=== PATIENT | female | born 1980 | race African-American/Black ===

== ENCOUNTER 2019-08-26 14:13 | Outpatient (CLI) | payer OTHER, SELFPAY ==
--- NOTE | ~2019-08-26 | MR_ITS ---
EXAMINATION: MR orbits face neck wo con EXAM DATE: 08/26/2019 15:15 INDICATION: Left eye Codie's Granulomatous polyangiitis. TECHNIQUE: Magnetic resonance imaging (MRI) of the brain/brain stem obtained without contrast. Juan Jose aguirre T1, axial diffusion, gradient echo (T2*), T1, T2, FLAIR sequences obtained. Smaller qkzhy-fv-kprv T1 coronal and axial, T2 fat saturation coronal and axial sequences of the orbits obtained. There is no prior study for comparison. FINDINGS: There is left orbital mass causing mass effect and/or involving the left globe, along the l eft posterolateral superior aspect. Mass is about 8 mm in maximal thickness, thins out along the cont our of the lobe. It could be could be partially or completely encasing the traversing lateral rectus muscle. This does not have restricted diffusion, which decreases likelihood of lymphoma or other tarun gnancy. 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 Ocular muscles, optic nerves a re otherwise unremarkable No evidence of involvement within the orbits elsewhere. There is right mastoid effusion. Small to mod erate-sized right maxillary sinus mucous retention cysts. There are no areas of restricted diffusion to suggest acute infarction. There is no acute hemorrhage seen on the T2*, a hemosiderin sensitive s equence. No intraparenchymal brain mass. The ventricles are normal in size. There are no extra-axia l collections. Flow voids are seen in the cerebral arteries on the T2-weighted sequences consistent with their expected patency. IMPRESSION: Left orbital mass causing mass effect or involving the left globe posterior superolateral wall, could also be partially or completely encasing traversing portion of the left lateral rectus m uscle. Reviewed, dictated and finalized at location A. WEAVER IMPRESSION: Left orbital mass causing mass effect or involving the left globe p osterior superolateral wall, could also be partially or completely encasing tra versing portion of the left lateral rectus muscle.
== END 2019-08-26 14:14 | disposition home or self-care (01) ==
PROVIDERS: PCP Nurse Practitioner Family; Visit Provider Internal Medicine Gastroenterology
DX: H50.10 Unspecified exotropia (principal); M31.30 Wegener's granulomatosis without renal involvement
CPT/HCPCS: 70540

== ENCOUNTER 2019-11-26 13:13 | Emergency (ER) | payer OTHER, SELFPAY ==
[2019-11-26 13:15] VITALS: BP 148/92; PULSE 98; RESP 18; TEMP 36.3; O2SAT 100
[2019-11-26 14:12] LABS: Basophils Percent Auto 0.2 % (0.2-1.2); Eosinophils Percent Auto 0.5 % (0-4.4); Hematocrit 35.3 % (37.0-47.0); Hemoglobin 11.3 g/dL (12.0-15.0); Immature Granulocyte Absolute 0.02 K/mm3 (0.00-0.031); Immature Granulocyte Percent A 0.3 % (0-0.5); Lymphocytes Absolute Auto 0.96 K/mm3 (0.9-3.2); Lymphocytes Percent Auto 16.6 % (18.3-44.2); Mean Corpuscular Hemoglobin 29.4 pg (26-34); Mean Corpuscular Volume 91.9 fl (80-100); Mean Platelet Volume 8.8 fl (7.4-10.4); Monocytes Absolute Auto 0.3 K/mm3 (0.1-0.6); Monocytes Percent Auto 5.9 % (2.6-8.5); Neutrophils Absolute Auto 4.4 K/mm3 (1.3-6.7); Neutrophils Percent Auto 76.5 % (45.5-73.1); Platelet Count Result 377 k/mm3 (150-375); Red Blood Count 3.84 M/mm3 (4.2-5.4); Red Cell Distribution Width 16.2 % (11.5-14.5); White Blood Count 5.8 K/mm3 (4.5-10.0)
[2019-11-26] MEDS: METOCLOPRAMIDE HCL INJ 10 MG/2 ML VIAL IV PUSH (14:13)
[2019-11-26] MEDS: SODIUM CHLORIDE 0.9% IV 1,000 ML 999 ML IV CONT (14:16)
[2019-11-26] MEDS: KETOROLAC 15 MG/ML VIAL (*BKC) IV PUSH (14:17)
[2019-11-26 14:26] LABS: Blood Urea Nitrogen 12 mg/dL (7-17); CRP 0.7 mg/dL (<1.0); Calcium 9.3 mg/dL (8.4-10.2); Carbon Dioxide 26 mmol/L (22-30); Chloride 103 mmol/L (98-107); Estimated CRCL calculation 102 ml/min; Estimated Glomerular Filt Rate > 60; Glucose 99 mg/dL (65-105); Potassium 3.4 mmol/L (3.4-5.0); Sodium 138 mmol/L (137-145)
[2019-11-26 14:38] LABS: Erythrocyte Sedimentation Rate 80 mm/hr (0-20)
[2019-11-26 15:25] VITALS: PULSE 80; RESP 20; O2SAT 98
--- NOTE | 2019-11-26 16:15 | ED.HA ---
HPI - Headache General Chief Complaint: Headache Stated Complaint: Headache, Rash Time Seen by Provider: 11/26/19 13:36 Source: patient Mode of arrival: ambulatory Limitations: no limitations History of Present Illness HPI Narrative: This is a 39-year-old female that presents the emergency department for headache x2 days. Reports intermittent headaches that she has been taking ibuprofen with relief. Reports frontal headache. Reports she does have history of headaches. Also reports earlier this week she was having trouble with hives. Reports she took Benadryl for this with relief. Reports a possible new body soap which caused an allergic reaction. Also reports that she thinks her uveitis is flaring. She has been having some pain and redness to the left eye. Reports she has a ophthalmic steroid that she uses when she has a flare. She does see an eye doctor for this. Denies fever, stiff neck, new vision changes, vomiting, numbness or weakness. Related Data Allergies Allergy/AdvReac Type Severity Reaction Status Date / Time ciprofloxacin Allergy Mild Rash Verified 12/22/18 18:26 codeine Allergy Mild Rash Verified 12/22/18 18:26 amoxicillin Allergy Unknown Rash Verified 12/22/18 18:26 clavulanic acid Allergy Unknown Rash Verified 12/22/18 18:26 nitrofurantoin Allergy Unknown Rash Verified 12/22/18 18:26 sulfamethoxazole Allergy Unknown Rash Verified 12/22/18 18:26 trimethoprim Allergy Unknown Rash Verified 12/22/18 18:26 Contrast Media Allergy Intermediate Other Uncoded 12/22/18 18:26 NITROFURANTOIN MACROCRYSTAL Allergy Unknown Rash Uncoded 12/22/18 18:26 Review of Systems Review of Systems: Narrative: CONSTITUTIONAL: Denies fever EYES: Reports redness. Denies visual changes GASTROINTESTINAL: Denies vomiting SKIN: Denies rash currently NEUROLOGIC: Reports headache. Denies numbness, or weakness. All systems reviewed & are unremarkable except as noted in HPI and below PMFSH Past Medical History Medical History (Updated 11/26/19 @ 16:27 by Grecia Mejia PA-C) History of uveitis History of Codie's granulomatosis Social History Social History (Updated 11/26/19 @ 16:19 by Grecia Mejia PA-C) Smoking status: Never smoker Substance use: never Exam Narrative: Exam Narrative: GENERAL: Well-appearing, well-nourished, and in no acute distress. HEAD: Normocephalic, atraumatic. No temporal tenderness EYES: EOMI. Left conjuntival injection. Left sided ptosis ENT: Nares clear, no rhinorrhea or epistaxis. Mucous membranes moist. Oropharynx without tonsillar hypertrophy exudate or other lesions. Bilateral TMs pearly mueller non-bulging NECK: Supple. No adenopathy or masses. Normal ROM CHEST: Clear to auscultation. No respiratory distress. No wheezes rales or rhonchi HEART: Regular rate and rhythm. No murmur heard. Normal peripheral pulses. EXTREMITIES: Normal range of motion. No edema. Strength equal in bilateral upper extremities SKIN: Warm, dry, no rash. NEURO: No focal deficits. Alert and oriented x3. Cranial nerves II through XII grossly intact PSYCH: Normal mood and affect Course Vital Signs Vital signs: Vital Signs Temperature 97.4 F L 11/26/19 13:15 Pulse Rate 98 11/26/19 13:15 Respiratory Rate 18 11/26/19 13:15 Blood Pressure 148/92 H 11/26/19 13:15 Pulse Oximetry 100 11/26/19 13:15 Temperature 97.4 F L 11/26/19 13:15 Pulse Rate 98 11/26/19 13:15 Respiratory Rate 18 11/26/19 13:15 Blood Pressure 148/92 H 11/26/19 13:15 Pulse Oximetry 100 11/26/19 13:15 MDM - Headache MDM Narrative Medical decision making narrative: Patient presents the emergency department for headache that has been intermittent for 2 days. Patient is afebrile and nontoxic-appearing. She is neurologically intact. CBC is without leukocytosis. ESR is elevated, CRP is normal. Patient reports relief of headache with migraine cocktail. Patient does have history of Codie's granulomatosis and history of uvei
[2019-11-26 17:17] VITALS: BP 134/82; PULSE 82; RESP 20; O2SAT 98
== END 2019-11-26 17:20 | disposition home or self-care (01) ==
PROVIDERS: Physician Assistant; Emergency Provider Emergency Medicine; PCP Nurse Practitioner Family
DX: H20.9 Unspecified iridocyclitis (principal); G44.209 Tension-type headache, unspecified, not intractable
CPT/HCPCS: 36415; 80048; 85025; 85652; 86140; 96361; 96374; 96375; 99284; J0131; J1100; J1200; J1885; J2765; J7030

== ENCOUNTER 2019-12-30 16:16 | Emergency (ER) | payer OTHER, SELFPAY ==
--- NOTE | ~2019-12-30 | CT_ITS ---
EXAMINATION: CT brain wo con INDICATION: Headache and nausea COMPARISON: 12/23/2019 TECHNIQUE: Standard unenhanced head CT. The dose-length product (DLP) was 605.33 mGy-cm. The mA was a djusted according to patient size. Iterative reconstruction technique was employed. FINDINGS: There is no intracranial hemorrhage, acute infarction, or abnormal mass lesion. The ventric les are normal. There is no abnormal mass effect or midline shift. The mueller-white matter differentiat ion is normal. The basal cisterns are patent. The orbits are normal. There is near complete opacifica tion of the right mastoid air cells. IMPRESSION: 1. No acute intracranial abnormality. 2. Right mastoid effusion. Reviewed, dictated and finalized at location A.
[2019-12-30 16:19] VITALS: BP 172/105; PULSE 111; RESP 18; TEMP 36.8; O2SAT 100
[2019-12-30 16:54] LABS: Basophils Percent Auto 0.1 % (0.2-1.2); Eosinophils Percent Auto 0.1 % (0-4.4); Hematocrit 32.9 % (37.0-47.0); Hemoglobin 10.3 g/dL (12.0-15.0); Immature Granulocyte Absolute 0.02 K/mm3 (0.00-0.031); Immature Granulocyte Percent A 0.2 % (0-0.5); Lymphocytes Absolute Auto 1.18 K/mm3 (0.9-3.2); Lymphocytes Percent Auto 13.7 % (18.3-44.2); Mean Corpuscular HGB Conc 31.3 g/dl (32-36); Mean Corpuscular Hemoglobin 28.8 pg (26-34); Mean Corpuscular Volume 91.9 fl (80-100); Mean Platelet Volume 8.3 fl (7.4-10.4); Monocytes Absolute Auto 0.6 K/mm3 (0.1-0.6); Monocytes Percent Auto 6.4 % (2.6-8.5); Neutrophils Absolute Auto 6.8 K/mm3 (1.3-6.7); Neutrophils Percent Auto 79.5 % (45.5-73.1); Platelet Count Result 369 k/mm3 (150-375); Red Blood Count 3.58 M/mm3 (4.2-5.4); Red Cell Distribution Width 16.7 % (11.5-14.5); White Blood Count 8.6 K/mm3 (4.5-10.0)
[2019-12-30 17:05] LABS: Blood Urea Nitrogen 12 mg/dL (7-17); Calcium 9.4 mg/dL (8.4-10.2); Carbon Dioxide 26 mmol/L (22-30); Chloride 102 mmol/L (98-107); Estimated CRCL calculation 89 ml/min; Estimated Glomerular Filt Rate > 60; Glucose 110 mg/dL (65-105); Potassium 3.5 mmol/L (3.4-5.0); Sodium 136 mmol/L (137-145)
--- NOTE | 2019-12-30 18:30 | PC.NURSE ---
Per EDP via verbal order readback give 4mg zofran ODT and 60mg IM toradol due to patient increasing headache and nausea.
[2019-12-30] MEDS: KETOROLAC (*BKC) 60 MG/2 ML VIAL (18:31)
[2019-12-30] MEDS: ONDANSETRON HCL ODT 4 MG TABLET (18:31)
[2019-12-30 18:38] LABS: Add Urine Microscopic? YES; Appearance Urine Clear (Clear); Bacteria Urine Trace /hpf; Bilirubin Urine Negative (Negative); Blood Urine Negative (Negative); Color Urine Yellow (Yellow); Glucose Urine UA Negative (Negative); Ketones Urine 1+ mg/dL (Negative); Leukocyte Esterase Ur Trace LEU/UL (Negative); Mucus Urine Few /lpf; Nitrate Urine Negative (Negative); Protein Urine 1+ mg/dL (Negative); RBC Urine 0-2 /hpf (0-2); Specific Grav Ur 1.025 (1.001-1.035); Squamous Epithelial Cell Urine Many /hpf (Few); Urobilinogen Urine Negative mg/dL (<2.0)
--- NOTE | 2019-12-30 18:42 | ECG_ITS ---
Measurements Intervals [place] Rate: 104 P: 27 AR: 128 QRS: 5 QRSD: 88 T: 19 QT: 353 QTc: 465 Interpretive Statements SINUS TACHYCARDIA BORDERLINE T WAVE ABNORMALITY- INFERIOR LEADS ABNORMAL ECG Electronically Signed On 12-30-2019 20:15:52 CDT by Kunal Downey D.O.
[2019-12-30 19:08] LABS: Troponin I < 0.012 ng/mL (0.000-0.034)
[2019-12-30 19:18] VITALS: BP 159/74; PULSE 98; RESP 20; O2SAT 99
--- NOTE | 2019-12-30 19:37 | ED.GENADULT ---
HPI - General Adult General Chief complaint: Headache Stated complaint: headache Time Seen by Provider: 12/30/19 16:20 Source: patient Mode of arrival: ambulatory Limitations: no limitations History of Present Illness HPI narrative: 39-year-old with a history of Samuels's granulomatosis, uveitis of the left eye here with complaints of headache, not feeling well, chest discomfort associated with some nausea for past 1 day. She also states that she woke up not feeling well. Denies any cough, shortness of breath or fever. Onset (ago): day(s) (1) Location: head and chest Radiation: non-radiation Severity: moderate Severity scale (1-10): 4 Quality: aching Relieving factors: none Exacerbating factors: none Associated symptoms: headaches Related Data Allergies Allergy/AdvReac Type Severity Reaction Status Date / Time ciprofloxacin Allergy Mild Rash Verified 12/30/19 16:22 codeine Allergy Mild Rash Verified 12/30/19 16:22 amoxicillin Allergy Unknown Rash Verified 12/30/19 16:22 clavulanic acid Allergy Unknown Rash Verified 12/30/19 16:22 nitrofurantoin Allergy Unknown Rash Verified 12/30/19 16:22 sulfamethoxazole Allergy Unknown Rash Verified 12/30/19 16:22 trimethoprim Allergy Unknown Rash Verified 12/30/19 16:22 Contrast Media Allergy Intermediate Other Uncoded 12/22/18 18:26 NITROFURANTOIN MACROCRYSTAL Allergy Unknown Rash Uncoded 12/22/18 18:26 Review of Systems Review of Systems: All systems reviewed & are unremarkable except as noted in HPI and below Constitutional: Constitutional: Reports as per HPI Eyes: Eyes: Reports no additional eye complaints ENT: Reports system reviewed and no additional complaints, except as documented Cardiovascular: Cardiovascular: Reports chest pain Respiratory: Respiratory: Reports no additional respiratory complaints Gastrointestinal: Gastrointestinal: Reports nausea and Reports vomiting Musculoskeletal: Musculoskeletal: Reports no additional musculoskeletal complaints Neurologic: Reports system reviewed and no additional complaints, except as documented Endocrine: Endocrine: Reports no additional endocrine complaints Hematologic/Lymphatic: Hematologic/Lymphatic: Reports no additional hematologic/lymphatic complaints FOR[facility]LY [facility], [facility] Past Medical History Medical History History of uveitis History of Codie's granulomatosis Social History Social History (Updated 11/26/19 @ 16:19 by Grecia Mejia PA-C) Smoking status: Never smoker Substance use: never Exam Const: General: no acute distress and alert Orientation/consciousness: patient oriented x3 HENMT: Head: normal to inspection Eyes: Pupils: Equal, round and reactive pupils present Other: Left eye deviated Neck: Neck: normal visual inspection Chest: Chest palpation & inspection: normal inspection of the chest Resp: Effort & Inspection: normal respiratory effort Cardio: Rate: regular rate Rhythm: regular rhythm GI: GI Palp: Yes Soft to palpation : General: Yes no CVA tenderness Back/Spine/Pelvis: Back: no CVA tenderness Skin: General skin exam: normal color Neuro: General: patient oriented x3 and moves all extremities Extrem: General: normal to inspection Course Course Emergency Course: Inform patient about her lab work, EKG. CT findings. She is still has minor nausea however she refused Compazine at this time. And her cause of headache and chest pain could be a migraine or could be atypical headache. Advised her to continue home medication, follow-up with her primary doctor Vital Signs Vital signs: Vital Signs Temperature 36.8 C 12/30/19 16:19 Pulse Rate 111 H 12/30/19 16:19 Respiratory Rate 18 12/30/19 16:19 Blood Pressure 172/105 H 12/30/19 16:19 Pulse Oximetry 100 12/30/19 16:19 Temperature 36.8 C 12/30/19 16:19 Pulse Rate 98 12/30/19 19:18 Respiratory Rate 20 12/30/19 19:18 Blood Pressure 159/74 H
[2019-12-30 19:56] VITALS: BP 126/83; PULSE 94; RESP 18; TEMP 36.8; O2SAT 100
== END 2019-12-30 19:56 | disposition home or self-care (01) ==
PROVIDERS: Emergency Provider Family Medicine; PCP Nurse Practitioner Family
DX: R51 Headache (principal); M31.30 Wegener's granulomatosis without renal involvement; R00.0 Tachycardia, unspecified; R94.31 Abnormal electrocardiogram [ECG] [EKG]
CPT/HCPCS: 36415; 70450; 80048; 81001; 84484; 85025; 93005; 96374; 96375; 99284; A9270; J0780; J1885

== ENCOUNTER 2020-01-10 21:32 | Emergency (ER) | payer OTHER, SELFPAY ==
[2020-01-10 21:33] VITALS: BP 150/95; PULSE 98; RESP 25; TEMP 36.4; O2SAT 100
[2020-01-10] MEDS: KETOROLAC 30 MG/ML VIAL (*BKC) IV PUSH (22:56)
[2020-01-10] MEDS: SODIUM CHLORIDE 0.9% IV 1,000 ML 999 ML IV CONT (22:56)
[2020-01-10] MEDS: METOCLOPRAMIDE HCL INJ 10 MG/2 ML VIAL IV PUSH (22:56)
--- NOTE | 2020-01-10 22:57 | ED.HA ---
HPI - Headache General Chief Complaint: Headache Stated Complaint: HEADACHE History of Present Illness HPI Narrative: Patient is a 39-year-old female who presents ER with headache. It is diffuse. Has history of migraines. Similar to previous headaches. It all began earlier today after her left eye began to hurt her. 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 No new fevers/chills/sweats/nausea/vomiting. She took Tylenol 1 time today without relief of symptoms. Increased sensitivity to light. No other aggravating factors. Related Data Allergies Allergy/AdvReac Type Severity Reaction Status Date / Time ciprofloxacin Allergy Mild Rash Verified 01/10/20 21:52 codeine Allergy Mild Rash Verified 01/10/20 21:52 amoxicillin Allergy Unknown Rash Verified 01/10/20 21:52 clavulanic acid Allergy Unknown Rash Verified 01/10/20 21:52 nitrofurantoin Allergy Unknown Rash Verified 01/10/20 21:52 sulfamethoxazole Allergy Unknown Rash Verified 01/10/20 21:52 trimethoprim Allergy Unknown Rash Verified 01/10/20 21:52 Contrast Media Allergy Intermediate Other Uncoded 01/10/20 21:52 NITROFURANTOIN MACROCRYSTAL Allergy Unknown Rash Uncoded 01/10/20 21:52 Review of Systems Review of Systems: All systems reviewed & are unremarkable except as noted in HPI and below Constitutional: Constitutional: Denies chills, Denies fever(s) and Denies weakness Eyes: Eyes: Denies change in vision and Reports photophobia ENT: Denies nasal congestion and Denies sore throat Gastrointestinal: Gastrointestinal: Denies abdominal pain, Denies nausea and Denies vomiting Neurologic: Reports headache(s), Denies focal weakness and Denies numbness PMFSH Past Medical History Medical History (Updated 01/11/20 @ 00:53 by Frank Clarke MD) History of uveitis History of Codie's granulomatosis Surgical History Surgical History (Updated 01/10/20 @ 23:00 by Frank Clarke MD) History of myringotomy Social History Social History (Updated 11/26/19 @ 16:19 by Grecia Mejia PA-C) Smoking status: Never smoker Substance use: never Gender identity (if verbalized by the patient): Female Exam Narrative: Exam Narrative: GENERAL: Well-appearing, well-nourished, and in no acute distress. HEAD: Normocephalic, atraumatic. EYES: Right eye normal, left eye deviated laterally with drooping of the eyelid that is chronic for her. CHEST: Clear to auscultation. No respiratory distress. HEART: Regular rate and rhythm. Normal peripheral pulses. EXTREMITIES: Normal range of motion. No edema. NEURO: Alert and oriented x3. PSYCH: Normal mood and affect. Course Course Emergency Course: Headache improved with Reglan/Benadryl/Toradol. Discharge home. Vital Signs Vital signs: Vital Signs Temperature 97.6 F 01/10/20 21:33 Pulse Rate 98 01/10/20 21:33 Respiratory Rate 25 H 01/10/20 21:33 Blood Pressure 150/95 H 01/10/20 21:33 Pulse Oximetry 100 01/10/20 21:33 Temperature 97.6 F 01/10/20 21:33 Pulse Rate 80 01/10/20 23:47 Respiratory Rate 15 01/10/20 23:47 Blood Pressure 114/75 01/10/20 23:47 Pulse Oximetry 100 01/10/20 23:47 Discharge Plan Discharge Clinical Impression: Migraine Patient Disposition: Home, Self-Care Condition: Stable Instructions: Migraine Headache (ED) Additional Instructions: Return the ER if you lose consciousness, you have fever over 100.4 ?F, you have chest pain or shortness of breath, you have additional concerns. Prescriptions: No Action zgfprvzwzk-hbvqprw-yggovxdc [Fiorinal] 50-325-40 mg capsule 1 cap PO Q4-6H PRN (Reason: pain) Qty: 14 RF: 0 ondansetron HCl [Zofran] 4 mg tablet 4 mg PO Q8H 5 Days Qty: 15 RF: 0 Follow-up/Referrals: BALBIR,MIKE WONG [Primary Care Provider] - 1 Week Stand Alone Forms: Work/School Release IP
--- NOTE | 2020-01-10 23:00 | PC.NURSE ---
Assumed care of pt at this time. Report from LAURA Johnson
[2020-01-10 23:47] VITALS: BP 114/75; PULSE 80; RESP 15; O2SAT 100
[2020-01-11 00:50] VITALS: BP 117/72; PULSE 90; RESP 15; O2SAT 100
== END 2020-01-11 00:50 | disposition home or self-care (01) ==
PROVIDERS: Emergency Provider Emergency Medicine; PCP Nurse Practitioner Family
DX: G43.909 Migraine, unspecified, not intractable, without status migrainosus (principal); M31.30 Wegener's granulomatosis without renal involvement
CPT/HCPCS: 96361; 96374; 96375; 99284; J1200; J1885; J2765; J7030

== ENCOUNTER 2020-01-30 17:21 | Emergency (ER) | payer OTHER, SELFPAY ==
[2020-01-30] VITALS (8 sets, daily range): BP systolic 107–148; BP diastolic 66–93; PULSE 76–117; RESP 12–22; TEMP 37.3; O2SAT 100
--- NOTE | ~2020-01-30 | XR_ITS ---
EXAMINATION: XR chest 2V 01/30/2020 19:36 INDICATION: Hypertension. Dyspnea. PROCEDURE: 2 view chest COMPARISON: Comparison to multiple prior studies sequentially, with oldest reviewed study dated 07/25 99. FINDINGS: The lungs are clear. The cardiomediastinal silhouette is within normal limits. There are no pleural effusions. There is no pneumothorax suspected. IMPRESSION: 1: NO ACUTE CARDIOPULMONARY DISEASE. Reviewed, dictated and finalized at location A.
--- NOTE | 2020-01-30 17:57 | ECG_ITS ---
Measurements Intervals [place] Rate: 100 P: 27 MT: 144 QRS: -28 QRSD: 83 T: -30 QT: 324 QTc: 419 Interpretive Statements SINUS TACHYCARDIA DELAYED PRECORDIAL R/S TRANSITION HIGH LATERAL INFARCT, AGE INDETERMINATE BORDERLINE T WAVE ABNORMALITY- ANT/INF LEADS BASELINE ARTIFACT- I, II, III, AVR, AVL, AVF ABNORMAL ECG Electronically Signed On 01-30-2020 20:00:43 CDT by Kunal Downey D.O.
[2020-01-30 18:21] LABS: Basophils Percent Auto 0.3 % (0.2-1.2); Eosinophils Percent Auto 0.3 % (0-4.4); Hematocrit 33.8 % (37.0-47.0); Hemoglobin 10.9 g/dL (12.0-15.0); Immature Granulocyte Absolute 0.02 K/mm3 (0.00-0.031); Immature Granulocyte Percent A 0.3 % (0-0.5); Lymphocytes Percent Auto 14.3 % (18.3-44.2); Mean Corpuscular HGB Conc 32.2 g/dl (32-36); Mean Corpuscular Hemoglobin 29.9 pg (26-34); Mean Corpuscular Volume 92.6 fl (80-100); Mean Platelet Volume 9.2 fl (7.4-10.4); Monocytes Absolute Auto 0.6 K/mm3 (0.1-0.6); Monocytes Percent Auto 8.1 % (2.6-8.5); Neutrophils Absolute Auto 5.4 K/mm3 (1.3-6.7); Neutrophils Percent Auto 76.7 % (45.5-73.1); Platelet Count Result 367 k/mm3 (150-375); Red Blood Count 3.65 M/mm3 (4.2-5.4); Red Cell Distribution Width 16.7 % (11.5-14.5)
[2020-01-30 18:31] LABS: INR 1.1
[2020-01-30 18:32] LABS: Partial Thromboplastin Time 30.6 SECONDS (22.3-36.8)
[2020-01-30 18:33] LABS: Anion Gap 12.6 mmol/L (7-16); Blood Urea Nitrogen 14 mg/dL (7-17); Calcium 9.6 mg/dL (8.4-10.2); Carbon Dioxide 25 mmol/L (22-30); Chloride 103 mmol/L (98-107); Estimated CRCL calculation 117 ml/min; Estimated Glomerular Filt Rate > 60; Glucose 105 mg/dL (65-105); Potassium 3.6 mmol/L (3.4-5.0); Sodium 137 mmol/L (137-145)
[2020-01-30 18:45] LABS: Troponin I < 0.012 ng/mL (0.000-0.034)
[2020-01-30] MEDS: ASPIRIN 81 MG CHEWABLE TABLET 324 MG PO (19:17)
--- NOTE | 2020-01-30 19:48 | ED.GENADULT ---
HPI - General Adult General Chief complaint: Dizziness Stated complaint: dizzy, htn Time Seen by Provider: 01/30/20 19:23 Source: patient Mode of arrival: ambulatory Limitations: no limitations History of Present Illness HPI narrative: This patient is a 39 year old female who presents for evaluation of elevated blood pressure and elevated heart rate. PAtient states she was washing dishes around 4 pm when she started to feel jittery. She checked her blood pressure at that time and it was elevated 160/100 and her heart rate was 130. She became nervous and she came to ER. She also had some lightheadedness when she stood up. Her symptoms have resolved. She has been told in the past her BP is elevated when she goes to doctors office but she does not take anti hypertensive medication. Onset (ago): hour(s) (4) Related Data Allergies Allergy/AdvReac Type Severity Reaction Status Date / Time ciprofloxacin Allergy Mild Rash Verified 01/30/20 22:18 codeine Allergy Mild Rash Verified 01/30/20 22:18 amoxicillin Allergy Unknown Rash Verified 01/30/20 22:18 clavulanic acid Allergy Unknown Rash Verified 01/30/20 22:18 nitrofurantoin Allergy Unknown Rash Verified 01/30/20 22:18 sulfamethoxazole Allergy Unknown Rash Verified 01/30/20 22:18 trimethoprim Allergy Unknown Rash Verified 01/30/20 22:18 Contrast Media Allergy Intermediate Other Uncoded 01/30/20 22:18 NITROFURANTOIN MACROCRYSTAL Allergy Unknown Rash Uncoded 01/30/20 22:18 Review of Systems Review of Systems: All systems reviewed & are unremarkable except as noted in HPI and below Constitutional: Constitutional: Denies chills and Denies fever(s) ENT: Reports dizziness Cardiovascular: Cardiovascular: Denies chest pain and Reports rapid heart rate Respiratory: Respiratory: Denies chest congestion, Denies cough, Reports dyspnea and Denies wheezing Gastrointestinal: Gastrointestinal: Denies abdominal pain, Denies diarrhea, Denies nausea and Denies vomiting Psychiatric: Psychiatric: Reports anxiety PMFSH Past Medical History Medical History History of uveitis History of Codie's granulomatosis Surgical History Surgical History (Updated 01/10/20 @ 23:00 by Frank Clarke MD) History of myringotomy Social History Social History (Updated 11/26/19 @ 16:19 by Grecia Mejia PA-C) Smoking status: Never smoker Substance use: never Gender identity (if verbalized by the patient): Female Exam Narrative: Exam Narrative: GENERAL: Well-appearing, well-nourished, and in no acute distress. HEAD: Normocephalic, atraumatic EARS: TM's clear bilaterally without erythema or dullness NOSE: Nares clear, no rhinorrhea or epistaxis THROAT:Mucous membranes moist, Oropharynx normal without erythema, exudate, peritonsillar swelling or fluctuance NECK: Supple, without lymphadenopathy or mass RESPIRATORY: No respiratory distress, Airway patent, Respirations non-labored, Clear to auscultation without rales, rhonchi or wheeze HEART: Regular rate and rhythm. No murmur heard. Normal peripheral pulses. ABDOMEN: Soft, nontender, nondistended, normal active bowel sounds. No masses. No rebound or guarding, No organomegaly. EXTREMITIES: No edema, normal strength with full range of motion. SKIN: Warm, dry, normal color without rash NEURO: Alert and oriented x3. CN 2-12 grossly intact. No focal deficits. PSYCH: Normal mood and affect. Course Reevaluation(s) Reevaluation #1: Patient reported to nursing staff that she wanted to be tested for UTI since she is having frequent urination. She denies dysuria. I Discussed UA does not definitely show UTI. She wants to hold off on antibiotics until PCP follows up on urine culture Date: 01/30/20 Time: 22:07 Vital Signs Vital signs: Vital Signs Temperature 99.1 F 01/30/20 17:54 Pulse Rate 103 H 01/30/20 17:54 Respiratory Rate 16 01/30/20 17:54 Blood Pressur
--- NOTE | 2020-01-30 21:30 | PC.NURSE ---
Pt states she forgot to let the doctor know she has been having frequent urination for about [address] Perez made aware.
[2020-01-30 21:45] LABS: Troponin I < 0.012 ng/mL (0.000-0.034)
[2020-01-30 21:53] LABS: Add Urine Microscopic? YES; Appearance Urine Clear (Clear); Bacteria Urine Trace /hpf; Bilirubin Urine Negative (Negative); Blood Urine Negative (Negative); Calcium Oxalate Crystals Urine Present /hpf; Color Urine Yellow (Yellow); Glucose Urine UA Negative (Negative); Ketones Urine Negative (Negative); Leukocyte Esterase Ur 2+ LEU/UL (Negative); Mucus Urine Few /lpf; Nitrate Urine Negative (Negative); Protein Urine 1+ mg/dL (Negative); Specific Grav Ur 1.029 (1.001-1.035); Squamous Epithelial Cell Urine Many /hpf (Few); Urobilinogen Urine Negative mg/dL (<2.0); WBC Urine 0-3 /hpf
== END 2020-01-30 22:30 | disposition home or self-care (01) ==
PROVIDERS: Emergency Medicine; Emergency Provider General Practice; PCP Nurse Practitioner Family
DX: R00.2 Palpitations (principal); R00.0 Tachycardia, unspecified; R94.31 Abnormal electrocardiogram [ECG] [EKG]
CPT/HCPCS: 36415; 71046; 80048; 81001; 83735; 84484; 85025; 85610; 85730; 87086; 87088; 93005; 99284; A9270

== ENCOUNTER 2021-02-21 11:21 | Emergency (ER) | payer OTHER, SELFPAY ==
--- NOTE | ~2021-02-21 | CT_ITS ---
EXAMINATION: CT brain wo con DATE: 02/21/2021 15:37 INDICATION: Dizziness. TECHNIQUE: Computed tomography (CT) of the head was performed without intravenous contrast. The mA wa s adjusted according to patient size. Iterative reconstruction technique was employed. The dose-lengt h product was 605.33 mGy-cm. COMPARISON: Head CT 12/30/2019, MRI 08/26/2019 FINDINGS: There is no intracranial hemorrhage, acute infarction, or abnormal intracranial mass lesion . The ventricles are normal in size. There is a right otomastoid effusion. There is mild mucosal thic kening in right maxillary sinus. There is a left orbital mass involving the lacrimal gland and supero lateral aspect of the left ocular globe with mass effect on the globe. IMPRESSION: 1. Normal brain. 2. Right otomastoid effusion. 3. Stable chronic left orbital mass with involvement of the left lacrimal gland and mass effect on th e left ocular globe. 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 Reviewed, dictated and finalized at location B. IMPRESSION: 1. Normal brain. 2. Right otomastoid effusion. 3. Stable chronic left orbital mass with involvement of the left lacrimal gland and mass effect on the left ocular globe. By report, outside testing is consis tent with granulomatosis with polyangiitis.
[2021-02-21 12:15] VITALS: BP 132/91; PULSE 100; RESP 18; TEMP 36.8; O2SAT 100
[2021-02-21 14:45] VITALS: BP 136/94; PULSE 103; RESP 18; O2SAT 100
--- NOTE | 2021-02-21 14:56 | ED.DIZZY ---
HPI - Dizziness General Chief Complaint: Dizziness Stated Complaint: dizzy Time Seen by Provider: 02/21/21 14:56 Source: patient Mode of arrival: ambulatory Limitations: no limitations History of Present Illness HPI Narrative: The patient is a 40 yo with a history of Codie's granulomatosis polyangitis and uveitis (following at [facility]) who presents for evaluation of dizziness. Pt states it is a spinning sensation, worsened with movement. Dizziness began yesterday and then resolved after taking tylenol and diazepam. Then the dizziness recurred this morning at 9 am. Dizziness resolved at the time of assessment. She does report a mild headache on the right and some non focal weakness. She denies numbness. No thunderclap sensation. She does have a history of vertigo and states it feels similar. Pt is requesting a head CT. Pt denies ear pain but does report presence of a clear discharge from the ear. No nausea or vomiting. No focal weakness or numbness. Pt has been ambulatory without difficulty. For her vasculitis, pt follows with [facility] rheumatology. Related Data Home Medications Medication Instructions Recorded Confirmed calcium carbonate-vitamin D2 tablet PO 02/21/21 02/21/21 [Calcium + Vitamin D] folic acid 1 mg PO DAILY 02/21/21 02/21/21 methotrexate sodium 2.5 mg PO WEEKLY 02/21/21 02/21/21 waoghzgofxuf-gti-mzgo-FA-vit K tablet PO 02/21/21 [Adults Multivitamin] Allergies Allergy/AdvReac Type Severity Reaction Status Date / Time ciprofloxacin Allergy Mild Rash Verified 02/21/21 14:53 codeine Allergy Mild Rash Verified 02/21/21 14:53 amoxicillin Allergy Unknown Rash Verified 02/21/21 14:53 clavulanic acid Allergy Unknown Rash Verified 02/21/21 14:53 nitrofurantoin Allergy Unknown Rash Verified 02/21/21 14:53 sulfamethoxazole Allergy Unknown Rash Verified 02/21/21 14:53 trimethoprim Allergy Unknown Rash Verified 02/21/21 14:53 Contrast Media Allergy Intermediate Other Uncoded 01/30/20 22:18 NITROFURANTOIN MACROCRYSTAL Allergy Unknown Rash Uncoded 01/30/20 22:18 Review of Systems Review of Systems: CONSTITUTIONAL: Denies fever, chills, or sweats. EYES: Denies visual changes, redness, or discharge. ENT: Denies rhinorrhea, congestion, sore throat, or otalgia.Reports discharge from right ear. CARDIOVASCULAR: Denies chest pain, palpitations, or edema. RESPIRATORY: Denies cough or dyspnea. GASTROINTESTINAL: Denies abdominal pain, nausea, vomiting, or diarrhea. GENITOURINARY: Denies dysuria or hematuria. SKIN: Denies rash or itching. MUSCULOSKELETAL: Denies back pain, joint pain, or myalgia. NEUROLOGIC: Reports mild headache, reports non focal weakness, dizziness resolved PMFSH Past Medical History Medical History (Updated 02/21/21 @ 17:26 by Karen Alvarado MD) History of uveitis History of Codie's granulomatosis Surgical History Surgical History History of myringotomy Social History Social History Smoking status: Never smoker Substance use: never Gender identity (if verbalized by the patient): Female Exam Narrative: GENERAL: Awake, alert, conversant HEAD: Normocephalic, atraumatic. EYES: 2+ pupil reactive, right, pt with abnormal eye exam left eye, at baseline, eye is deviated to the left ENT: Nares clear, no rhinorrhea or epistaxis. Mucous membranes moist.RIght ear effusion, serous. Non purulent. NECK: Supple. CHEST: No respiratory distress, breathing even and non labored HEART: Regular rate, sinus rhythm ABDOMEN:Non distended, non tender EXTREMITIES: Normal range of motion. No edema. SKIN: Warm, dry, no rash. NEURO:No focal deficits. Alert and oriented x3. Finger to nose intact bilaterally. EOMs intact without nystagmus. No facial droop/asymmetry noted bilaterally. Grimace intact. Intact sensation in face. Hearing intact bilaterally. Shoulder shrug intact. Strength 5/5 bilateral upper extremiti
--- NOTE | 2021-02-21 14:57 | ECG_ITS ---
Measurements Intervals [place] Rate: 85 P: 57 [place]: 154 QRS: -2 QRSD: 90 T: 9 QT: 353 QTc: 421 Interpretive Statements SINUS RHYTHM BORDERLINE T WAVE ABNORMALITY- ANT/INF LEADS BASELINE ARTIFACT- I, II, III, AVR, AVL, AVF, V1-V4 BORDERLINE ECG Electronically Signed On 02-21-2021 19:58:58 CDT by Kunal Downey D.O.
[2021-02-21 15:43] LABS: Basophils Percent Auto 0.2 % (0.2-1.2); Eosinophils Percent Auto 0.2 % (0-4.4); Hemoglobin 10.3 g/dL (12.0-15.0); Immature Granulocyte Absolute 0.01 K/mm3 (0.00-0.031); Immature Granulocyte Percent A 0.2 % (0-0.5); Lymphocytes Absolute Auto 0.95 K/mm3 (0.9-3.2); Lymphocytes Percent Auto 18.7 % (18.3-44.2); Mean Corpuscular HGB Conc 31.2 g/dl (32-36); Mean Corpuscular Hemoglobin 30.4 pg (26-34); Mean Corpuscular Volume 97.3 fl (80-100); Mean Platelet Volume 8.7 fl (7.4-10.4); Monocytes Absolute Auto 0.4 K/mm3 (0.1-0.6); Monocytes Percent Auto 7.3 % (2.6-8.5); Neutrophils Absolute Auto 3.7 K/mm3 (1.3-6.7); Neutrophils Percent Auto 73.4 % (45.5-73.1); Platelet Count Result 390 k/mm3 (150-375); Red Blood Count 3.39 M/mm3 (4.2-5.4); Red Cell Distribution Width 16.8 % (11.5-14.5); White Blood Count 5.1 K/mm3 (4.5-10.0)
[2021-02-21 15:47] LABS: Add Urine Microscopic? YES; Appearance Urine Cloudy (Clear); Bilirubin Urine Negative (Negative); Blood Urine 1+ (Negative); Color Urine Yellow (Yellow); Glucose Urine UA Negative (Negative); Ketones Urine Negative (Negative); Leukocyte Esterase Ur 1+ LEU/UL (Negative); Mucus Urine Rare /lpf; Nitrate Urine Negative (Negative); Protein Urine Negative (Negative); RBC Urine 0-2 /hpf (0-2); Specific Grav Ur 1.014 (1.001-1.035); Squamous Epithelial Cell Urine Many /hpf (Few); Urobilinogen Urine Negative mg/dL (<2.0)
[2021-02-21] MEDS: MECLIZINE HCL 25 MG TABLET PO (15:55)
[2021-02-21] MEDS: SODIUM CHLORIDE 0.9% IV 1,000 ML 999 ML IV CONT (15:58)
[2021-02-21 16:00] LABS: Alanine Aminotransferase 8 U/L (4-35); Albumin Level 4.4 g/dL (3.5-5.1); Alkaline Phosphatase 54 U/L (38-126); Anion Gap 7 mmol/L (8-16); Aspartate Amino Transferase 25 U/L (14-36); Bilirubin,Total 0.4 mg/dL (0.2-1.3); Blood Urea Nitrogen 9 mg/dL (7-17); Calcium 9.2 mg/dL (8.4-10.2); Carbon Dioxide 25 mmol/L (22-30); Chloride 108 mmol/L (98-107); Estimated CRCL calculation 118 ml/min; Estimated Glomerular Filt Rate > 60; Glucose 99 mg/dL (65-110); Potassium 3.5 mmol/L (3.4-5.0); Sodium 140 mmol/L (137-145)
[2021-02-21] MEDS: ONDANSETRON INJ 4 MG/2 ML VIAL IV PUSH (16:01)
[2021-02-21 16:12] LABS: Troponin I < 0.012 ng/mL (0.000-0.034)
[2021-02-21] MEDS: ACETAMINOPHEN 500 MG TABLET 1000 MG PO (16:15)
[2021-02-21] MEDS: KETOROLAC 15 MG/ML VIAL (*BKC) IV PUSH (16:17)
[2021-02-21 17:44] VITALS: BP 121/77; PULSE 100; RESP 16; O2SAT 99
== END 2021-02-21 17:46 | disposition home or self-care (01) ==
PROVIDERS: Emergency Provider Emergency Medicine; PCP Nurse Practitioner Family
DX: R42 Dizziness and giddiness (principal); H92.01 Otalgia, right ear; R51.9 Headache, unspecified; M31.30 Wegener's granulomatosis without renal involvement; M30.0 Polyarteritis nodosa; H20.9 Unspecified iridocyclitis
CPT/HCPCS: 36415; 70450; 80053; 81001; 84484; 85025; 87086; 87088; 93005; 96361; 96374; 96375; 96376; 99284; A9270; J1100; J1885; J2405; J7030

== ENCOUNTER 2021-05-04 10:25 | Outpatient (CLI) | payer OTHER, SELFPAY ==
--- NOTE | ~2021-05-04 | MR_ITS ---
EXAMINATION: MR orbits face neck wo con EXAM DATE: 05/04/2021 11:30 INDICATION: Evaluation of orbital mass, Codie's granulomatosis left eye follow-up. Allergy to MRI c ontrast. Other disorder of the orbit. TECHNIQUE: Magnetic resonance imaging (MRI) images of the MR orbits face neck wo con were obtained. The following sequences were acquired: Sagittal T1 fast spin echo, axial diffusion weighted, axial gr adient-echo, axial T1 propeller, coronal thin T1 spin-echo, coronal T2 fast spin echo fat saturation thin, axial T1 spin-echo thin, axial T2 fast spin echo fat saturation thin, axial T2 propeller FLAIR, axial T2 propeller sequences. The thin sequences are specifically through the orbits. Comparison is made to prior examination from 08/26/2019. FINDINGS: Disconjugate gaze. There is left orbital mass causing mass effect and/or involving the left globe, along the left posterolateral superior aspect. Mass is about 8 mm in maximal thickness, thins out along the contour of the lobe. It could be could be partially or completely encasing the randi ing lateral rectus muscle along its globe attachment site. This has low T2, intermediate T1 signal in tensity and no restricted diffusion, could be Codie's granulomatosis. Ocular muscles, optic nerves are otherwise unremarkable No evidence of involvement within the orbits elsewhere. Chronic right otomastoiditis effusion and rig ht maxillary sinus mucous retention cyst. There are no areas of restricted diffusion to suggest acute infarction. There is no acute hemorrhage seen on the T2*, a hemosiderin sensitive sequence. No int raparenchymal brain mass. The ventricles are normal in size. There are no extra-axial collections. Flow voids are seen in the cerebral arteries on the T2-weighted sequences consistent with their expec clemencia patency. IMPRESSION: 1. Stable left orbital mass causing mass effect or involving the left globe posterior superolateral a nd left lateral rectus muscle. 2. Chronic right otomastoiditis effusion and maxillary sinus retention cyst. Reviewed, dictated and finalized at location A. IMPRESSION: 1. Stable left orbital mass causing mass effect or involving the left globe pos terior superolateral and left lateral rectus muscle. 2. Chronic right otomastoiditis effusion and maxillary sinus retention cyst.
== END 2021-05-04 10:26 | disposition home or self-care (01) ==
LOC: ANHIMG 10:31
PROVIDERS: PCP Nurse Practitioner Family; Visit Provider Internal Medicine Gastroenterology
DX: H05.89 Other disorders of orbit (principal); J34.1 Cyst and mucocele of nose and nasal sinus
CPT/HCPCS: 70540

== ENCOUNTER 2021-10-28 15:18 | Emergency (ER) | payer OTHER, SELFPAY ==
--- NOTE | ~2021-10-28 | XR_ITS ---
EXAMINATION: XR chest 2V DATE: 10/28/2021 16:05 INDICATION: Heart palpitations, hypertension TECHNIQUE: PA and lateral views of the chest are obtained. COMPARISON: None available FINDINGS: The lungs are free of acute opacities. There is no pleural effusion or pneumothorax. The ca rdiomediastinal silhouette is normal. The visualized bones and soft tissues are unremarkable. IMPRESSION: 1. No acute cardiopulmonary abnormality. Reviewed, dictated and finalized at location F.
--- NOTE | ~2021-10-28 | CT_ITS ---
EXAMINATION: CT brain wo con INDICATION: Dizziness COMPARISON: 02/21/2021 TECHNIQUE: Standard unenhanced head CT. The dose-length product (DLP) was 605.33 mGy-cm. The mA was a djusted according to patient size. Iterative reconstruction technique was employed. FINDINGS: There is no intracranial hemorrhage, acute infarction, or abnormal mass lesion. The ventric les are normal. There is no abnormal mass effect or midline shift. The mueller-white matter differentiat ion is normal. The basal cisterns are patent. Again seen is a left orbital mass involving the lacrima l gland and superolateral aspect of the globe with mass effect on the globe. There is a chronic right otomastoid effusion. There is cystic degenerative change in the left mandibular condyle. IMPRESSION: 1. No acute intracranial abnormality. 2. Chronic right otomastoid effusion. 3. Stable left orbital mass. Reviewed, dictated and finalized at location F.
--- NOTE | 2021-10-28 15:30 | ECG_ITS ---
Measurements Intervals [place] Rate: 113 P: 41 CO: 153 QRS: -24 QRSD: 88 T: 29 QT: 321 QTc: 442 Interpretive Statements SINUS TACHYCARDIA BORDERLINE LEFT AXIS DEVIATION [QRS AXIS < -20] ABNORMAL RHYTHM ECG COMPARED TO ECG 02/21/2021 16:32:47 SINUS TACHYCARDIA NOW PRESENT Electronically Signed On 10-28-2021 16:49:45 CDT by Cristian Everett M.D.
[2021-10-28 16:07] LABS: Basophils Percent Auto 0.3 % (0.2-1.2); Eosinophils Percent Auto 0.5 % (0-4.4); Hematocrit 34.2 % (37.0-47.0); Immature Granulocyte Absolute 0.01 K/mm3 (0.00-0.031); Immature Granulocyte Percent A 0.2 % (0-0.5); Lymphocytes Absolute Auto 1.16 K/mm3 (0.9-3.2); Lymphocytes Percent Auto 18.8 % (18.3-44.2); Mean Corpuscular HGB Conc 32.2 g/dl (32-36); Mean Corpuscular Volume 93.2 fl (80-100); Mean Platelet Volume 9.1 fl (7.4-10.4); Monocytes Absolute Auto 0.5 K/mm3 (0.1-0.6); Monocytes Percent Auto 8.4 % (2.6-8.5); Neutrophils Absolute Auto 4.4 K/mm3 (1.3-6.7); Neutrophils Percent Auto 71.8 % (45.5-73.1); Platelet Count Result 371 k/mm3 (150-375); Red Blood Count 3.67 M/mm3 (4.2-5.4); Red Cell Distribution Width 17.5 % (11.5-14.5); White Blood Count 6.2 K/mm3 (4.5-10.0)
[2021-10-28 16:16] LABS: Alanine Aminotransferase 9 U/L (4-35); Albumin Level 4.7 g/dL (3.5-5.1); Alkaline Phosphatase 55 U/L (38-126); Anion Gap 9 mmol/L (8-16); Aspartate Amino Transferase 22 U/L (14-36); Bilirubin,Total 0.6 mg/dL (0.2-1.3); Blood Urea Nitrogen 12 mg/dL (7-17); Calcium 9.4 mg/dL (8.4-10.2); Carbon Dioxide 25 mmol/L (22-30); Chloride 103 mmol/L (98-107); Estimated Glomerular Filt Rate > 60; Glucose 122 mg/dL (65-110); Lipase 68 U/L (23-300); Potassium 3.3 mmol/L (3.4-5.0); Sodium 137 mmol/L (137-145)
[2021-10-28 16:17] LABS: INR 1.1; Prothrombin Time 13.5 Seconds (11.1-14.7)
[2021-10-28 16:18] LABS: Partial Thromboplastin Time 32.9 SECONDS (22.3-36.8)
[2021-10-28 16:27] LABS: Troponin I < 0.012 ng/mL (0.000-0.034)
[2021-10-28 16:35] VITALS: BP 132/83; PULSE 104; RESP 16; TEMP 36.4; O2SAT 93
--- NOTE | 2021-10-28 19:55 | ED.ARRPALP ---
HPI - Arrhythmia/Palpitations General Chief Complaint: Dizziness <JUANIS Messina Last Filed: 10/28/21 23:12> Stated Complaint: elevated hr/dizzy <JUANIS Messina Last Filed: 10/28/21 23:12> Time Seen by Provider: 10/28/21 19:42 <JUANIS Messina Last Filed: 10/28/21 23:12> Source: patient <JUANIS Messina Last Filed: 10/28/21 23:12> Mode of arrival: ambulatory <JUANIS Messina Last Filed: 10/28/21 23:12> Limitations: no limitations <JUANIS Messina Last Filed: 10/28/21 23:12> History of Present Illness HPI narrative: This is a 41 year old female that presents to the ER with multiple complaints. Reports since yesterday she has felt like her heart is racing. She took her pulse and it was elevated into the 100s-110s. She reports she has been having some left eye discomfort and headache. She has history of Lorraine's granulomatosis and has a known mass in the left eye. She follows with specialists at [facility]. She just saw her eye doctor a couple of days ago and reports everything is stable. Denies chest pain or shortness of breath. <Grecia Mejia PA-C - Last Filed: 10/28/21 23:12> Related Data Home Medications: Home Medications Medication Instructions Recorded Confirmed folic acid 1 mg PO DAILY 02/21/21 02/28/21 methotrexate sodium 2.5 mg PO WEEKLY 02/21/21 02/28/21 [id number] K tablet PO 02/21/21 02/28/21 [Adults Multivitamin] aspirin 81 mg tablet,delayed 81 mg PO DAILY 02/28/21 02/28/21 release diazepam 2 mg tablet 2 mg PO QHS PRN 02/28/21 02/28/21 <JUANIS Messina Last Filed: 10/28/21 23:12> Allergies/Adverse Reactions: Allergies Allergy/AdvReac Type Severity Reaction Status Date / Time Iodinated Contrast Media Allergy Intermediate Unknown Verified 10/28/21 22:38 ciprofloxacin Allergy Mild Rash Verified 02/28/21 10:37 codeine Allergy Mild Rash Verified 02/28/21 10:37 amoxicillin Allergy Unknown Rash Verified 02/28/21 10:37 clavulanic acid Allergy Unknown Rash Verified 02/28/21 10:37 nitrofurantoin Allergy Unknown Rash Verified 02/28/21 10:37 sulfamethoxazole Allergy Unknown Rash Verified 02/28/21 10:37 trimethoprim Allergy Unknown Rash Verified 02/21/21 14:53 Contrast Media Allergy Intermediate Other Uncoded 01/30/20 22:18 <Grecia Mejia PA-C - Last Filed: 10/28/21 23:12> Review of Systems Review of Systems: CONSTITUTIONAL: Denies fever EYES: Denies visual changes CARDIOVASCULAR: Denies chest pain, or edema. RESPIRATORY: Denies dyspnea. GASTROINTESTINAL: Denies vomiting NEUROLOGIC: Reports headache. Denies numbness, or weakness. <Grecia Mejia PA-C - Last Filed: 10/28/21 23:12> All systems reviewed & are unremarkable except as noted in HPI and below <Grecia Mejia PA-C - Last Filed: 10/28/21 23:12> [facility] Past Medical History Medical History: Medical History (Updated 10/29/21 @ 00:00 by Portillo Liu) History of uveitis History of Codie's granulomatosis <Grecia Mejia PA-C - Last Filed: 10/28/21 23:12> Surgical History Surgical History: Surgical History History of myringotomy <Grecia Mejia PA-C - Last Filed: 10/28/21 23:12> Family History Family History: Family History Father Diabetes mellitus Mother Diabetes mellitus Depression Arthritis <Grecia Mejia PA-C - Last Filed: 10/28/21 23:12> Social History Social History: Social History Smoking status: Never smoker Alcohol intake: never Substance use: never Gender identity (if verbalized by the patient): Female <Grecia Mejia PA-C - Last Filed: 10/28/21 23:12> Exam Narrative: GENERAL: Well-appearing, well-nourished, and in no acute distress. HEAD: Normocephalic, atraumatic. EYES: PERR
[2021-10-28 20:41] VITALS: BP 129/81; PULSE 97; RESP 20; O2SAT 99
[2021-10-28] MEDS: SODIUM CHLORIDE 0.9% IV 1,000 ML 999 ML IV CONT (20:45)
[2021-10-28 21:13] LABS: CRP < 0.5 mg/dL (<1.0)
[2021-10-28 21:21] LABS: Erythrocyte Sedimentation Rate 43 mm/hr (0-20)
[2021-10-28 21:22] LABS: Troponin I < 0.012 ng/mL (0.000-0.034)
[2021-10-28 21:41] VITALS: BP 116/95; PULSE 100; RESP 15; O2SAT 100
[2021-10-28 22:04] LABS: Add Urine Microscopic? YES; Appearance Urine Cloudy (Clear); Bacteria Urine Trace /hpf; Bilirubin Urine Negative (Negative); Blood Urine 1+ (Negative); Color Urine Yellow (Yellow); Glucose Urine UA Negative (Negative); Ketones Urine 1+ mg/dL (Negative); Leukocyte Esterase Ur Trace LEU/UL (Negative); Mucus Urine Rare /lpf; Nitrate Urine Negative (Negative); Protein Urine Negative (Negative); Specific Grav Ur 1.015 (1.001-1.035); Squamous Epithelial Cell Urine Moderate /hpf (Few); Urobilinogen Urine Negative mg/dL (<2.0)
[2021-10-28] MEDS: METOCLOPRAMIDE HCL INJ 10 MG/2 ML VIAL IV PUSH (23:25)
[2021-10-28] MEDS: diphenhydrAMINE HCl INJ 50 MG/ML VIAL 25 MG IV PUSH (23:27)
[2021-10-28] MEDS: POTASSIUM CHLORIDE 20 MEQ PACKET (FOR LIQUID) 40 MEQ PO (23:28)
[2021-10-28 23:55] VITALS: BP 123/87; PULSE 110; RESP 18; O2SAT 100
== END 2021-10-28 23:36 | disposition home or self-care (01) ==
PROVIDERS: Emergency Medicine; Physician Assistant; Emergency Provider Emergency Medicine; PCP Nurse Practitioner Family
DX: R51.9 Headache, unspecified (principal); M31.30 Wegener's granulomatosis without renal involvement; R00.0 Tachycardia, unspecified; E87.6 Hypokalemia
CPT/HCPCS: 36415; 70450; 71046; 80053; 81001; 81025; 83690; 84484; 85025; 85610; 85652; 85730; 86140; 93005; 96361; 96365; 96375; 99284; A9270; J0131; J1100; J1200; J2765; J7030

== ENCOUNTER 2022-02-09 11:32 | Emergency (ER) | payer OTHER, SELFPAY ==
--- NOTE | ~2022-02-09 | CT_ITS ---
EXAMINATION: CT abdomen pelvis wo con DATE: 02/09/2022 15:40 INDICATION: left flank pain TECHNIQUE: Computed tomography (CT) of the abdomen and pelvis was performed without intravenous contr ast. Automated exposure control and iterative reconstruction technique were employed. The dose-length product was 342.94 mGy-cm. COMPARISON: 03/12/2012. FINDINGS: Exam limited by paucity of intra-abdominal fat and lack of contrast. Lower thorax: Unremarkable Liver: Right lobe hemangioma. Otherwise normal. Biliary/Gallbladder: Gallbladder is normal. No bile duct dilation. Pancreas: No mass or duct dilation. Spleen: Normal. Adrenals:No mass. Kidneys: No mass, stone, or hydronephrosis. Bilateral nephrocalcinosis. GI tract: No small or large bowel dilation. Appendix not visualized. Diverticulosis without diverticu litis. Mesentery/Peritoneum: No ascites, mass, or free air. Retroperitoneum: No mass. Pelvis: Fibroids, otherwise the pelvic organs are within normal limits. Multiple pelvic phleboliths. Distal ureters not visualized. Soft Tissues: Soft tissues and body wall unremarkable. Bones: No acute osseous finding. IMPRESSION: Limited examination. Distal ureters not visualized. Multiple pelvic calcifications/phleboliths in the expected path of the distal ureters. A small distal ureteral stone cannot be excluded, however there is no significant hydronephrosis or perinephric stranding at this time. Reviewed, dictated and finalized at location K. IMPRESSION: Limited examination. Distal ureters not visualized. Multiple pelvic calcificati ons/phleboliths in the expected path of the distal ureters. A small distal uret eral stone cannot be excluded, however there is no significant hydronephrosis o r perinephric stranding at this time.
[2022-02-09 11:40] VITALS: BP 140/85; PULSE 96; RESP 16; TEMP 36.9; O2SAT 100
[2022-02-09 11:58] LABS: Basophils Percent Auto 0.2 % (0.2-1.2); Eosinophils Absolute Auto 0.1 K/mm3 (0-0.3); Eosinophils Percent Auto 2.4 % (0-4.4); Hemoglobin 11.1 g/dL (12.0-15.0); Immature Granulocyte Absolute 0.02 K/mm3 (0.00-0.031); Immature Granulocyte Percent A 0.4 % (0-0.5); Lymphocytes Absolute Auto 1.13 K/mm3 (0.9-3.2); Lymphocytes Percent Auto 22.7 % (18.3-44.2); Mean Corpuscular HGB Conc 31.7 g/dl (32-36); Mean Corpuscular Hemoglobin 30.4 pg (26-34); Mean Corpuscular Volume 95.9 fl (80-100); Mean Platelet Volume 9.1 fl (7.4-10.4); Monocytes Absolute Auto 0.4 K/mm3 (0.1-0.6); Monocytes Percent Auto 8.8 % (2.6-8.5); Neutrophils Absolute Auto 3.3 K/mm3 (1.3-6.7); Neutrophils Percent Auto 65.5 % (45.5-73.1); Platelet Count Result 339 k/mm3 (150-375); Red Blood Count 3.65 M/mm3 (4.2-5.4); Red Cell Distribution Width 18.1 % (11.5-14.5)
[2022-02-09 12:11] LABS: Alanine Aminotransferase 12 U/L (6-35); Albumin Level 4.5 g/dL (3.5-5.1); Alkaline Phosphatase 52 U/L (38-126); Anion Gap 9 mmol/L (8-16); Appearance Urine Slightly Cloudy (Clear); Aspartate Amino Transferase 21 U/L (14-36); Bilirubin Urine 1+ (Negative); Bilirubin,Total 0.5 mg/dL (0.2-1.3); Blood Urea Nitrogen 14 mg/dL (7-17); Blood Urine Negative (Negative); Calcium 9.3 mg/dL (8.4-10.2); Carbon Dioxide 25 mmol/L (22-30); Chloride 101 mmol/L (98-107); Color Urine Yellow (Yellow); Estimated CRCL calculation 88 ml/min; Estimated Glomerular Filt Rate > 60; Glucose 95 mg/dL (65-110); Glucose Urine UA Negative (Negative); Ketones Urine 3+ mg/dL (Negative); Leukocyte Esterase Ur Negative LEU/UL (Negative); Lipase 72 U/L (23-300); Nitrate Urine Negative (Negative); Potassium 3.7 mmol/L (3.4-5.0); Protein Urine Negative (Negative); Sodium 135 mmol/L (137-145); Specific Grav Ur 1.025 (1.001-1.035); Urobilinogen Urine 0.2 mg/dL (<2.0)
[2022-02-09 12:22] LABS: Add Urine Microscopic? YES; Bacteria Urine Trace /hpf; Mucus Urine Few /lpf; Squamous Epithelial Cell Urine Many /hpf (Few); WBC Urine 0-3 /hpf
[2022-02-09 13:56] VITALS: BP 131/83; PULSE 89; RESP 16; O2SAT 100
[2022-02-09 14:23] LABS: Pregnancy On Board Control Positive; Urine Pregnancy Test Negative
--- NOTE | 2022-02-09 17:12 | ED.GENADULT ---
HPI - General Adult General Chief complaint: Abdominal Pain Stated complaint: abd pain/ fatigue Time Seen by Provider: 02/09/22 13:36 History of Present Illness HPI narrative: Patient is a 41-year-old female who presents ER with left-sided flank pain. Began yesterday. Started rotating around into her lower abdomen. Associate with urinary frequency and urgency. No dysuria or hematuria. No fevers or chills or sweats. Has been mildly nauseated and feels weak and dehydrated. No alleviating factors. Related Data Home Medications Medication Instructions Recorded Confirmed folic acid 1 mg tablet 1 mg PO DAILY 02/21/21 02/28/21 methotrexate sodium 2.5 mg tablet 2.5 mg PO WEEKLY 02/21/21 02/28/21 multivit with minerals-iron 18 tablet PO 02/21/21 02/28/21 mg-folic ac 400 mcg-vit K 25 mcg tablet (Adults Multivitamin) aspirin 81 mg tablet,delayed 81 mg PO DAILY 02/28/21 02/28/21 release (Adult Low Dose Aspirin) diazepam 2 mg tablet 2 mg PO QHS PRN 02/28/21 02/28/21 Allergies Allergy/AdvReac Type Severity Reaction Status Date / Time Iodinated Contrast Media Allergy Intermediate Unknown Verified 02/09/22 14:14 ciprofloxacin Allergy Mild Rash Verified 02/09/22 14:14 codeine Allergy Mild Rash Verified 02/09/22 14:14 amoxicillin Allergy Unknown Rash Verified 02/09/22 14:14 clavulanic acid Allergy Unknown Rash Verified 02/09/22 14:14 nitrofurantoin Allergy Unknown Rash Verified 02/09/22 14:14 sulfamethoxazole Allergy Unknown Rash Verified 02/09/22 14:14 trimethoprim Allergy Unknown Rash Verified 02/09/22 14:14 Contrast Media Allergy Intermediate Other Uncoded 02/09/22 14:14 Review of Systems Review of Systems: All systems reviewed & are unremarkable except as noted in HPI and below Constitutional: Constitutional: Denies chills, Reports fatigue and Denies fever(s) Cardiovascular: Cardiovascular: Denies chest pain, Denies rapid heart rate and Denies radiating jaw, neck or arm pain Respiratory: Respiratory: Denies cough and Denies dyspnea Gastrointestinal: Gastrointestinal: Reports abdominal pain, Reports nausea and Denies vomiting Genitourinary: Genitourinary: Denies hematuria, Reports nocturia, Denies dysuria and Reports flank pain PMF Past Medical History Medical History (Updated 02/09/22 @ 17:24 by Frank Clarke MD) History of uveitis History of Codie's granulomatosis Surgical History Surgical History History of myringotomy Family History Family History Father Diabetes mellitus Mother Diabetes mellitus Depression Arthritis Social History Social History Smoking status: Never smoker Alcohol intake: never Substance use: never Gender identity (if verbalized by the patient): Female Exam Narrative: GENERAL: Well-appearing, well-nourished, and in no acute distress. HEAD: Normocephalic, atraumatic. EYES: PERRL, left eye strabismus. NECK: Supple. CHEST: Clear to auscultation. No respiratory distress. HEART: Regular rate and rhythm. Normal peripheral pulses. ABDOMEN: Soft, nontender, nondistended. Back: No midline tenderness of T/L-spine. No CVA tenderness. Mild left lower lumbar paraspinal muscular tenderness at L3. EXTREMITIES: Normal range of motion. No edema. SKIN: Warm, dry, no rash. NEURO: Alert and oriented x3. PSYCH: Normal mood and affect. Course Course Emergency Course: Patient informed of results. Toradol and fluids. Suspect patient passed or is passing a small kidney stone. Patient verbalized understanding. Vital Signs Vital signs: Vital Signs Temperature 98.5 F 02/09/22 11:40 Pulse Rate 96 02/09/22 11:40 Respiratory Rate 16 02/09/22 11:40 Blood Pressure 140/85 02/09/22 11:40 Pulse Oximetry 100 02/09/22 11:40 Oxygen Delivery Room Air 02/09/22 11:40 Temperature 98.5
[2022-02-09] MEDS: SODIUM CHLORIDE 0.9% IV 1,000 ML 999 ML IV CONT (17:24)
[2022-02-09] MEDS: KETOROLAC 30 MG/ML VIAL (*BKC) IV PUSH (17:25)
[2022-02-09 18:19] VITALS: BP 108/76; PULSE 77; RESP 20; O2SAT 100
== END 2022-02-09 18:21 | disposition home or self-care (01) ==
PROVIDERS: Emergency Medicine; Emergency Provider Emergency Medicine; PCP Nurse Practitioner Family
DX: R10.30 Lower abdominal pain, unspecified (principal); Z79.82 Long term (current) use of aspirin
CPT/HCPCS: 36415; 74176; 80053; 81001; 81025; 83690; 85025; 96361; 96374; 99284; J1885; J7030

== ENCOUNTER 2022-03-20 08:01 | Outpatient (CLI) | payer OTHER, SELFPAY ==
--- NOTE | ~2022-03-20 | MM_ITS ---
EXAMINATION: MM screening mago BI w amador HISTORY: Screening mammogram TECHNIQUE: Craniocaudal and mediolateral oblique 3-D tomosynthesis images were obtained and synthetic 2-D images were generated. CAD analysis was submitted and interpreted. COMPARISON: No prior mammogram is available for comparison at this institution. BREAST PARENCHYMAL COMPOSITION: FINDINGS: Asymmetric 5 mm opacity at mid to posterior depth in the lower outer left breast (cranial c audal Tomosynthesis image 20/21). This is evident on CC but not MLO view. Diagnostic left mammogram i s recommended, with ultrasound if required, with attention to any possible skin lesion that might acc ount for this opacity. Otherwise there is no evidence of suspicious mass, calcification, or architectural distortion to sugg est malignancy in either breast. IMPRESSION: 1. 5 mm asymmetric opacity in the lower outer left breast on craniocaudal projection only 2. Diagnostic left mammogram is recommended, with ultrasound if required BI-RADS Category 0: Incomplete: Needs additional imaging evaluation. Reviewed, dictated and finalized at location A. IMPRESSION: 1. 5 mm asymmetric opacity in the lower outer left breast on craniocaudal proje ction only 2. Diagnostic left mammogram is recommended, with ultrasound if required BI-RADS Category 0: Incomplete: Needs additional imaging evaluation.
== END 2022-03-20 08:02 | disposition home or self-care (01) ==
PROVIDERS: PCP Nurse Practitioner Family; Visit Provider Nurse Practitioner Family
DX: Z12.31 Encounter for screening mammogram for malignant neoplasm of breast (principal); R92.8 Other abnormal and inconclusive findings on diagnostic imaging of breast
CPT/HCPCS: 77063; 77067

== ENCOUNTER 2022-06-12 10:57 | Emergency (ER) | payer OTHER, SELFPAY ==
[2022-06-12 11:38] VITALS: BP 122/78; PULSE 80; RESP 16; TEMP 37.2; O2SAT 99
--- NOTE | 2022-06-12 12:01 | ED.ALLEREA ---
HPI - Allergic Reaction General Chief complaint: Allergic Reaction Stated complaint: hives, lips swollen Time Seen by Provider: 06/12/22 11:55 History of Present Illness HPI narrative: 1-year-old female history of eczema presents to the emergency room for evaluation of a rash located to the base of both thumbs and subjective lower lip swelling. Patient states rash began last week, and has seen her PCP. Was started on triamcinolone, states that that has not alleviated her symptoms. Patient states that she has a prescription for clobetasol pending at the pharmacy. Reports experiencing some lower lip swelling, but denies shortness of breath occultly breathing or dysphagia. Related Data Home Medications Medication Instructions Recorded Confirmed folic acid 1 mg tablet 1 mg PO DAILY 02/21/21 02/28/21 methotrexate sodium 2.5 mg tablet 2.5 mg PO WEEKLY 02/21/21 02/28/21 multivit with minerals-iron 18 tablet PO 02/21/21 02/28/21 mg-folic ac 400 mcg-vit K 25 mcg tablet (Adults Multivitamin) aspirin 81 mg tablet,delayed 81 mg PO DAILY 02/28/21 02/28/21 release (Adult Low Dose Aspirin) diazepam 2 mg tablet 2 mg PO QHS PRN 02/28/21 02/28/21 Allergies Allergy/AdvReac Type Severity Reaction Status Date / Time Iodinated Contrast Media Allergy Intermediate Unknown Verified 02/09/22 14:14 ciprofloxacin Allergy Mild Rash Verified 02/09/22 14:14 codeine Allergy Mild Rash Verified 02/09/22 14:14 amoxicillin Allergy Unknown Rash Verified 02/09/22 14:14 clavulanic acid Allergy Unknown Rash Verified 02/09/22 14:14 nitrofurantoin Allergy Unknown Rash Verified 02/09/22 14:14 sulfamethoxazole Allergy Unknown Rash Verified 02/09/22 14:14 trimethoprim Allergy Unknown Rash Verified 02/09/22 14:14 Contrast Media Allergy Intermediate Other Uncoded 02/09/22 14:14 Review of Systems Review of Systems: CONSTITUTIONAL: Denies fever, chills, or sweats. EYES: Denies visual changes, redness, or discharge. ENT: Denies rhinorrhea, congestion, sore throat, or otalgia. CARDIOVASCULAR: Denies chest pain, palpitations, or edema. RESPIRATORY: Denies cough or dyspnea. GASTROINTESTINAL: Denies abdominal pain, nausea, vomiting, or diarrhea. GENITOURINARY: Denies dysuria or hematuria. SKIN: Reports rash MUSCULOSKELETAL: Denies back pain, joint pain, or myalgia. NEUROLOGIC: Denies headache, numbness, dizziness, or weakness. PSYCHIATRIC: Denies anxiety or depression. [facility] Past Medical History Medical History (Updated 06/12/22 @ 12:24 by Everett Ocampo APRN) History of uveitis History of Codie's granulomatosis Surgical History Surgical History History of myringotomy Family History Family History Father Diabetes mellitus Mother Diabetes mellitus Depression Arthritis Social History Social History Smoking status: Never smoker Alcohol intake: never Substance use: never Gender identity (if verbalized by the patient): Female Exam Narrative: GENERAL: Well-appearing, well-nourished, no physical limitations, and in no acute distress. HEAD: Normocephalic, atraumatic. EYES: Conjunctivae normal, PERRLA and EOMI. ENT: External nose normal, Nares clear, no rhinorrhea or epistaxis. Mucous membranes moist. Oropharynx without tonsillar hypertrophy exudate or other lesions. External ears normal, bilateral TMs normal bilaterally NECK: Supple. No adenopathy or masses. CHEST: Clear to auscultation. No respiratory distress. No wheezes rales or rhonchi. HEART: Regular rate and rhythm. No murmur heard. Normal peripheral pulses. ABDOMEN: Soft, nontender, nondistended, normal active bowel sounds. EXTREMITIES: Normal range of motion. No edema. No clubbing or cyanosis SKIN: Quarter sized area macular papular erythematous rash to the base of bilateral thumbs signs of excoriation. No lym
--- NOTE | 2022-06-12 13:02 | PC.NURSE ---
Pt refuses to sign discharge paperwork. Pt feels like left side of lips are continuing to swell. Lips appear symmetrical. Pt is not showing any signs of respiratory distress. Pt does not complain of pain. Pt accepted discharge packet, was given instructions on her steroid prescription that was sent to the pharmacy for her.
== END 2022-06-12 12:56 | disposition home or self-care (01) ==
PROVIDERS: Emergency Provider Nurse Practitioner Family; PCP Nurse Practitioner Family
DX: L30.9 Dermatitis, unspecified (principal); M31.30 Wegener's granulomatosis without renal involvement; Z79.82 Long term (current) use of aspirin
CPT/HCPCS: 99283

== ENCOUNTER 2022-06-17 18:39 | Emergency (ER) | payer OTHER, SELFPAY ==
[2022-06-17 18:45] VITALS: BP 147/87; PULSE 93; RESP 16; TEMP 37.3; O2SAT 99
[2022-06-17] MEDS: diphenhydrAMINE HCl CAP 25 MG CAPSULE 50 MG PO (19:28)
[2022-06-17] MEDS: FAMOTIDINE 20 MG TABLET 40 MG PO (19:28)
[2022-06-17 19:33] VITALS: BP 140/90; PULSE 95; RESP 18; O2SAT 100
--- NOTE | 2022-06-17 19:49 | ED.GENADULT ---
HPI - General Adult General Chief complaint: Allergic Reaction Stated complaint: allergic reaction Time Seen by Provider: 06/17/22 19:07 History of Present Illness HPI narrative: This is a 41-year-old female presenting to ED with urticaria. Patient has been seen multiple times over the last several days and multiple EGDs for urticaria over her arms and thighs. Patient 1st went to the hospital on June 12 where she was given prednisone Pepcid Benadryl. She was given a 5 day course of prednisone. This resolved her symptoms for approximately 48 hours but then they recurred on June 14. She then went to a different hospital and was treated the same way with resolution of her symptoms until today. Today she has urticaria over her arms and thighs. Today the patient woke up and she had some slight swelling of her upper lip. She denies sensation of throat closure, difficulty breathing, nausea and vomiting, dizziness or lightheadedness. She does have an EpiPen at home. She has no known allergens causing her symptoms. Related Data Home Medications Medication Instructions Recorded Confirmed folic acid 1 mg tablet 1 mg PO DAILY 02/21/21 02/28/21 methotrexate sodium 2.5 mg tablet 2.5 mg PO WEEKLY 02/21/21 02/28/21 multivit with minerals-iron 18 tablet PO 02/21/21 02/28/21 mg-folic ac 400 mcg-vit K 25 mcg tablet (Adults Multivitamin) aspirin 81 mg tablet,delayed 81 mg PO DAILY 02/28/21 02/28/21 release (Adult Low Dose Aspirin) diazepam 2 mg tablet 2 mg PO QHS PRN 02/28/21 02/28/21 Allergies Allergy/AdvReac Type Severity Reaction Status Date / Time Iodinated Contrast Media Allergy Intermediate Unknown Verified 02/09/22 14:14 ciprofloxacin Allergy Mild Rash Verified 02/09/22 14:14 codeine Allergy Mild Rash Verified 02/09/22 14:14 amoxicillin Allergy Unknown Rash Verified 02/09/22 14:14 clavulanic acid Allergy Unknown Rash Verified 02/09/22 14:14 nitrofurantoin Allergy Unknown Rash Verified 02/09/22 14:14 sulfamethoxazole Allergy Unknown Rash Verified 02/09/22 14:14 trimethoprim Allergy Unknown Rash Verified 02/09/22 14:14 Contrast Media Allergy Intermediate Other Uncoded 02/09/22 14:14 Review of Systems Review of Systems: CONSTITUTIONAL: Denies night sweats. EYES: No eye pain ENT: Denies rhinorrhea CARDIOVASCULAR: Denies palpitations RESPIRATORY: Denies hemoptysis GASTROINTESTINAL: Denies hematemesis GENITOURINARY: Denies hematuria. SKIN: Denies rash MUSCULOSKELETAL: Denies myalgia. NEUROLOGIC: Denies weakness. PSYCHIATRIC: Denies delusions [facility] Past Medical History Medical History (Updated 06/17/22 @ 19:55 by Holden Lind MD) History of uveitis History of Codie's granulomatosis Surgical History Surgical History History of myringotomy Family History Family History Father Diabetes mellitus Mother Diabetes mellitus Depression Arthritis Social History Social History Smoking status: Never smoker Alcohol intake: never Substance use: never Gender identity (if verbalized by the patient): Female Exam Narrative: APPEARANCE: No apparent distress. Patient has an embroidery eye patch over her left eye Head: Patient has mild swelling of her upper lip EYES: left eye has exophthalmus NOSE: Atraumatic NECK: Trachea midline RESPIRATORY: No increased rate of breathing, no wheezing or respiratory distress CARDIOVASCULAR: RRR, ABDOMINAL: Non-distended MUSCULOSKELETAl: No obvious deformities NEURO: Alert. Moving 4/4 extremities SKIN:: Patient has urticarial wheals over her upper arms and over large portion of her thighs. PSYCHIATRIC: Normal affect Course Vital Signs Vital signs: Vital Signs Temperature 99.1 F 06/17/22 18:45 Pulse Rate 93 06/17/22 18:45 Respiratory Rate 16 06/17/22 18:45 Blood Pressur
[2022-06-17] MEDS: ONDANSETRON HCL ODT 4 MG TABLET PO (20:39)
== END 2022-06-17 20:44 | disposition home or self-care (01) ==
PROVIDERS: Emergency Provider Emergency Medicine; PCP Nurse Practitioner Family
DX: L50.9 Urticaria, unspecified (principal)
CPT/HCPCS: 96372; 99283; A9270; J1100

== ENCOUNTER 2022-06-21 17:28 | Emergency (ER) | payer OTHER, SELFPAY ==
[2022-06-21 17:34] VITALS: BP 137/84; PULSE 90; RESP 16; TEMP 37.3; O2SAT 100
--- NOTE | 2022-06-21 19:56 | ED.GENADULT ---
HPI - General Adult General Chief complaint: Skin/Abscess/Foreign Body Stated complaint: hives Time Seen by Provider: 06/21/22 18:41 History of Present Illness HPI narrative: Patient is a 41-year-old female presenting with recurrent hives. Patient states that over the last several weeks she has had recurrent episodes of diffuse hives. States that she has been seen multiple times and has taken courses of steroids with temporary relief. She actually saw a licensed clinician several days ago who started her on Mary Jane and Claritin. Unfortunately, today she again developed hives that her spreading up her neck which made her concerned. Patient states that her lip was swollen earlier this week but this has resolved. She denies difficulty swallowing or breathing. No nausea or vomiting. Patient states that her PCP is sent in a referral for an airworthiness inspector already. She denies fevers, headache, chest pain, shortness of breath, abdominal pain, diarrhea, leg swelling. Related Data Home Medications Medication Instructions Recorded Confirmed folic acid 1 mg tablet 1 mg PO DAILY 02/21/21 02/28/21 methotrexate sodium 2.5 mg tablet 2.5 mg PO WEEKLY 02/21/21 02/28/21 multivit with minerals-iron 18 tablet PO 02/21/21 02/28/21 mg-folic ac 400 mcg-vit K 25 mcg tablet (Adults Multivitamin) aspirin 81 mg tablet,delayed 81 mg PO DAILY 02/28/21 02/28/21 release (Adult Low Dose Aspirin) diazepam 2 mg tablet 2 mg PO QHS PRN 02/28/21 02/28/21 Allergies Allergy/AdvReac Type Severity Reaction Status Date / Time Iodinated Contrast Media Allergy Intermediate Unknown Verified 06/21/22 19:00 ciprofloxacin Allergy Mild Rash Verified 06/21/22 19:00 codeine Allergy Mild Rash Verified 06/21/22 19:00 amoxicillin Allergy Unknown Rash Verified 06/21/22 19:00 clavulanic acid Allergy Unknown Rash Verified 06/21/22 19:00 nitrofurantoin Allergy Unknown Rash Verified 06/21/22 19:00 sulfamethoxazole Allergy Unknown Rash Verified 06/21/22 19:00 trimethoprim Allergy Unknown Rash Verified 06/21/22 19:00 Contrast Media Allergy Intermediate Other Uncoded 06/21/22 19:00 Review of Systems Review of Systems: All systems reviewed & are unremarkable except as noted in HPI and below PMFSH Past Medical History Medical History (Updated 06/21/22 @ 20:07 by Sherry Castle MD) History of uveitis History of Codie's granulomatosis Surgical History Surgical History History of myringotomy Family History Family History Father Diabetes mellitus Mother Diabetes mellitus Depression Arthritis Social History Social History Smoking status: Never smoker Alcohol intake: never Substance use: never Gender identity (if verbalized by the patient): Female Exam Narrative: GENERAL: Well-appearing, well-nourished, and in no acute distress. HEAD: Normocephalic, atraumatic. EYES: PERRLA and EOMI. ENT: Nares clear, no rhinorrhea or epistaxis. Mucous membranes moist. No facial or oral swelling NECK: Supple. CHEST: Clear to auscultation. No respiratory distress. No wheezing HEART: Regular rate and rhythm. No murmur heard. Normal peripheral pulses. ABDOMEN: Soft, nontender, nondistended, normal active bowel sounds. EXTREMITIES: Normal range of motion. No edema. SKIN: Hives on the patient's right forearm as well as anterior aspect of her neck NEURO: No focal deficits. Alert and oriented x3. PSYCH: Normal mood and affect. Course Vital Signs Vital signs: Vital Signs Temperature 99.1 F 06/21/22 17:34 Pulse Rate 90 06/21/22 17:34 Respiratory Rate 16 06/21/22 17:34 Blood Pressure 137/84 06/21/22 17:34 Pulse Oximetry 100 06/21/22 17:34 Oxygen Delivery Room Air 06/21/22 17:34 Temperature 99.1 F 06/21/22 17:34 Pulse Rate 71 06/21/22 20:14 Respiratory Rate 18 12
[2022-06-21] MEDS: diphenhydrAMINE HCl CAP 25 MG CAPSULE PO (20:12)
[2022-06-21 20:14] VITALS: BP 122/85; PULSE 71; RESP 18; O2SAT 100
== END 2022-06-21 20:24 | disposition home or self-care (01) ==
PROVIDERS: Emergency Provider Emergency Medicine; PCP Nurse Practitioner Family
DX: L50.9 Urticaria, unspecified (principal); M31.30 Wegener's granulomatosis without renal involvement; Z79.82 Long term (current) use of aspirin
CPT/HCPCS: 99283; A9270

== ENCOUNTER 2022-06-22 21:28 | Emergency (ER) | payer OTHER, SELFPAY ==
[2022-06-22 21:38] VITALS: BP 145/87; PULSE 98; RESP 18; TEMP 37.1; O2SAT 100
--- NOTE | 2022-06-23 04:38 | ED.HA ---
HPI - Headache General Chief Complaint: Headache Stated Complaint: MIGRAINE Time Seen by Provider: 06/23/22 03:16 History of Present Illness HPI Narrative: Patient is a 41-year-old female who presents ER with headache. Left-sided posterior and frontal. Aching. Improved with Tylenol earlier in the day. Reports has been under a lot of stress. She has been seen in the ER multiple times for episodes of urticaria/hives. She currently has no outbreak or itching. She has been taking steroids for her symptoms. She is not currently taking the hydroxyzine prescribed by her PCP. She is also been taking Benadryl regularly. Recently she discontinued her fabric softener as it was perfumed in hopes that it would decrease her hives. Patient has been using dye free fragrance free detergent. Related Data Home Medications Medication Instructions Recorded Confirmed folic acid 1 mg tablet 1 mg PO DAILY 02/21/21 02/28/21 methotrexate sodium 2.5 mg tablet 2.5 mg PO WEEKLY 02/21/21 02/28/21 multivit with minerals-iron 18 tablet PO 02/21/21 02/28/21 mg-folic ac 400 mcg-vit K 25 mcg tablet (Adults Multivitamin) aspirin 81 mg tablet,delayed 81 mg PO DAILY 02/28/21 02/28/21 release (Adult Low Dose Aspirin) diazepam 2 mg tablet 2 mg PO QHS PRN 02/28/21 02/28/21 Allergies Allergy/AdvReac Type Severity Reaction Status Date / Time Iodinated Contrast Media Allergy Intermediate Unknown Verified 06/21/22 19:00 ciprofloxacin Allergy Mild Rash Verified 06/21/22 19:00 codeine Allergy Mild Rash Verified 06/21/22 19:00 amoxicillin Allergy Unknown Rash Verified 06/21/22 19:00 clavulanic acid Allergy Unknown Rash Verified 06/21/22 19:00 nitrofurantoin Allergy Unknown Rash Verified 06/21/22 19:00 sulfamethoxazole Allergy Unknown Rash Verified 06/21/22 19:00 trimethoprim Allergy Unknown Rash Verified 06/21/22 19:00 Contrast Media Allergy Intermediate Other Uncoded 06/21/22 19:00 Review of Systems Review of Systems: All systems reviewed & are unremarkable except as noted in HPI and below Constitutional: Constitutional: Denies chills, Denies fatigue and Denies fever(s) ENT: Denies nasal congestion and Denies sore throat Respiratory: Respiratory: Denies cough and Denies dyspnea Gastrointestinal: Gastrointestinal: Denies abdominal pain, Denies nausea and Denies vomiting Integumentary/Breasts: Skin/Breast: Denies pruritus, Denies erythema and Reports rash (Not at this time but recurrent over the last couple weeks.) Neurologic: Denies syncope, Reports headache(s), Denies focal weakness and Denies numbness PMFSH Past Medical History Medical History (Updated 06/23/22 @ 06:05 by Frank Clarke MD) History of uveitis History of Codie's granulomatosis Surgical History Surgical History History of myringotomy Family History Family History Father Diabetes mellitus Mother Diabetes mellitus Depression Arthritis Social History Social History Smoking status: Never smoker Alcohol intake: never Substance use: never Gender identity (if verbalized by the patient): Female Exam Narrative: GENERAL: Well-appearing, well-nourished, and in no acute distress. HEAD: Normocephalic, atraumatic. NECK: Supple. CHEST: Clear to auscultation. No respiratory distress. HEART: Regular rate and rhythm. Normal peripheral pulses. EXTREMITIES: Normal range of motion. No edema. SKIN: Warm, dry, no rash. NEURO: Alert and oriented x3. PSYCH: Normal mood and affect. Course Course Emergency Course: Patient with IV fluids and Tylenol. Feels improved. Discharge home. Vital Signs Vital signs: Vital Signs Temperature 98.8 F 06/22/22 21:38 Pulse Rate 98 06/22/22 21:38 Respiratory Rate 18 06/22/22 21:38 Blood Pressure 145/87 H 06/22/22 21:38 Pulse Oximetry 100
[2022-06-23] MEDS: ACETAMINOPHEN 325 MG TABLET 650 MG PO (05:11)
[2022-06-23] MEDS: SODIUM CHLORIDE 0.9% IV 1,000 ML 999 ML IV CONT (05:11)
[2022-06-23 05:16] VITALS: BP 115/73; PULSE 96; RESP 16; O2SAT 100
[2022-06-23 06:29] VITALS: BP 113/81; PULSE 78; RESP 16; TEMP 37.3; O2SAT 99
== END 2022-06-23 06:35 | disposition home or self-care (01) ==
PROVIDERS: Emergency Provider Emergency Medicine; PCP Nurse Practitioner Family
DX: R51.9 Headache, unspecified (principal); Z79.82 Long term (current) use of aspirin
CPT/HCPCS: 96360; 99283; A9270; J7030

== ENCOUNTER 2022-06-28 12:16 | Emergency (ER) | payer OTHER, SELFPAY ==
[2022-06-28 12:36] VITALS: BP 138/87; PULSE 88; TEMP 37.1; O2SAT 100
--- NOTE | 2022-06-28 13:55 | ED.DENTAL ---
HPI - Dental/Oral General Chief complaint: Dental/Oral Stated complaint: right jaw swelling Time Seen by Provider: 06/28/22 13:24 History of Present Illness HPI Narrative: Patient is a 41-year-old female presenting with dental pain. Patient states that she developed pain on the right lower side of her jaw sometime last night. States that this pain has continued and now radiates into her right ear. States she is concerned that she has a dental abscess. States that she has a dentist but they do not take her insurance anymore so she is looking for a new one. She denies fevers, difficulty breathing or swallowing, shortness of breath, abdominal pain, nausea or vomiting. Related Data Home Medications Medication Instructions Recorded Confirmed folic acid 1 mg tablet 1 mg PO DAILY 02/21/21 02/28/21 methotrexate sodium 2.5 mg tablet 2.5 mg PO WEEKLY 02/21/21 02/28/21 multivit with minerals-iron 18 tablet PO 02/21/21 02/28/21 mg-folic ac 400 mcg-vit K 25 mcg tablet (Adults Multivitamin) aspirin 81 mg tablet,delayed 81 mg PO DAILY 02/28/21 02/28/21 release (Adult Low Dose Aspirin) diazepam 2 mg tablet 2 mg PO QHS PRN 02/28/21 02/28/21 Allergies Allergy/AdvReac Type Severity Reaction Status Date / Time Iodinated Contrast Media Allergy Intermediate Unknown Verified 06/21/22 19:00 ciprofloxacin Allergy Mild Rash Verified 06/21/22 19:00 codeine Allergy Mild Rash Verified 06/21/22 19:00 amoxicillin Allergy Unknown Rash Verified 06/21/22 19:00 clavulanic acid Allergy Unknown Rash Verified 06/21/22 19:00 nitrofurantoin Allergy Unknown Rash Verified 06/21/22 19:00 sulfamethoxazole Allergy Unknown Rash Verified 06/21/22 19:00 trimethoprim Allergy Unknown Rash Verified 06/21/22 19:00 Contrast Media Allergy Intermediate Other Uncoded 06/21/22 19:00 Review of Systems Review of Systems: All systems reviewed & are unremarkable except as noted in HPI and below PMFSH Past Medical History Medical History (Updated 06/29/22 @ 00:00 by Portillo Liu) History of uveitis History of Codie's granulomatosis Surgical History Surgical History History of myringotomy Family History Family History Father Diabetes mellitus Mother Diabetes mellitus Depression Arthritis Social History Social History Smoking status: Never smoker Alcohol intake: never Substance use: never Gender identity (if verbalized by the patient): Female Exam Narrative: GENERAL: Well-appearing, well-nourished, and in no acute distress. HEAD: Normocephalic, atraumatic. EYES: PERRLA and EOMI. ENT: Nares clear, no rhinorrhea or epistaxis. Mucous membranes moist. Tooth 30 is missing, tooth 31 with tenderness, no obvious abscess, no fluctuance or drainage; tympanic membranes normal bilaterally NECK: Supple. CHEST: Clear to auscultation. No respiratory distress. HEART: Regular rate and rhythm. No murmur heard. Normal peripheral pulses. ABDOMEN: Soft, nontender, nondistended, normal active bowel sounds. EXTREMITIES: Normal range of motion. No edema. SKIN: Warm, dry, no rash. NEURO: No focal deficits. Alert and oriented x3. PSYCH: Normal mood and affect. Course Vital Signs Vital signs: Vital Signs Temperature 98.7 F 06/28/22 12:36 Pulse Rate 88 06/28/22 12:36 Blood Pressure 138/87 06/28/22 12:36 Pulse Oximetry 100 06/28/22 12:36 Temperature 98.7 F 06/28/22 12:36 Pulse Rate 88 06/28/22 12:36 Blood Pressure 138/87 06/28/22 12:36 Pulse Oximetry 100 06/28/22 12:36 MDM - Dental/Oral MDM Narrative Medical decision making narrative: Patient is a 41-year-old female presenting with concern for a dental abscess. Vitals are within normal limits. Exam is remarkable for the above. Patient is very well-appearing. Airway is patent. No intraoral s
[2022-06-28] MEDS: ACETAMINOPHEN 500 MG TABLET 1000 MG PO (14:07)
[2022-06-28] MEDS: KETOROLAC 30 MG/ML VIAL (*BKC) IM (14:07)
[2022-06-28] MEDS: CEPHALEXIN 500 MG CAPSULE PO (14:39)
[2022-06-28] MEDS: diphenhydrAMINE HCl CAP 25 MG CAPSULE PO (15:52)
== END 2022-06-28 15:55 | disposition home or self-care (01) ==
PROVIDERS: Emergency Provider Emergency Medicine; PCP Nurse Practitioner Family
DX: K08.89 Other specified disorders of teeth and supporting structures (principal)
CPT/HCPCS: 96372; 99283; A9270; J1885

== ENCOUNTER 2023-05-22 19:52 | Emergency (ER) | payer OTHER, SELFPAY ==
[2023-05-22 20:04] VITALS: BP 129/77; PULSE 80; RESP 19; TEMP 37.4; O2SAT 100
[2023-05-22 20:36] LABS: Strep Group A RT-PCR NOT DETECTED (Negative)
[2023-05-22 20:47] LABS: Influenza A QL RT-PCR Negative (Negative); Influenza B QL RT-PCR Negative (Negative); RSV RNA, RT-PCR Negative (Negative); SARS-CoV-2 RNA PCR Negative (Negative)
--- NOTE | 2023-05-22 23:38 | PC.NURSE ---
Pt had been moved to ED2 due to room closing just before 2300. This RN in at this time and noted pt not in room.
--- NOTE | 2023-05-23 00:01 | PC.NURSE ---
pt still not in room. Assumed pt lwbs
== END 2023-05-23 00:32 | disposition left against medical advice (07) ==
LOC: ANHED 05-23 00:14
PROVIDERS: Emergency Provider Emergency Medicine; PCP Nurse Practitioner Family
DX: R05.9 Cough, unspecified (principal); Z20.822 Contact with and (suspected) exposure to COVID-19
CPT/HCPCS: 87637; 87651; 99199